=== PATIENT | female | born 1945 | race Two or more races ===

== ENCOUNTER 2018-02-01 07:37 | Outpatient (CLI) | payer OTHER ==
[~2018-02-01 07:37] MED LIST: ENALAPRIL MALEA20 MG; LASIX20 MG; LIPOFLAVONOID C1 TAB; PLAVIX75 MG; PROTONIX40 MG; PULMICORT1 MG/2 ML; SYMBICORT 16010.2 GM; ULTRACET PO; ZANTAC150 M1
== END 2018-02-01 07:52 | disposition home or self-care (01) ==
LOC: NUCLEAR 07:37
DX: R07.89 Other chest pain (principal); R94.31 Abnormal electrocardiogram [ECG] [EKG]
CPT/HCPCS: 78452; 93017; A9500; J0153

== ENCOUNTER 2020-03-27 10:10 | Emergency (ER) | payer OTHER ==
[~2020-03-27] VITALS: Ht 162.6 cm; Wt 81.6 kg
[2020-03-27] MEDS ORDERED: VERAPAMIL ER240 MG PO (10:32)
[2020-03-27] MEDS ORDERED: RELAFEN DS1000 MG PO (10:33)
== END 2020-03-27 14:38 | disposition home or self-care (01) ==
LOC: ER 10:10
DX: I87.2 Venous insufficiency (chronic) (peripheral) (principal); R60.0 Localized edema; M54.6 Pain in thoracic spine; M54.2 Cervicalgia; Z03.818 Encounter for observation for suspected exposure to other biological agents ruled out

== ENCOUNTER 2024-07-13 09:42 | Inpatient (IN) | payer OTHER ==
[~2024-07-13] VITALS: Ht 165.1 cm; Wt 72.6 kg
[~2024-07-13 09:42] MED LIST changes: +RELAFEN DS1000 MG PO; +VERAPAMIL ER240 MG PO
[2024-07-13] MEDS ORDERED: 0.9 % SODIUM CHLORIDE 1,000 ML IV SCH ×2 (10:00→18:45)
[2024-07-13] MEDS ORDERED: LEVOTHYROXINE50 MCG PO (11:03)
[2024-07-13] MEDS ORDERED: ARICEPT5 MG PO (11:04)
[2024-07-13] MEDS ORDERED: FAMOTIDINE20 MG PO (11:04)
[2024-07-13 12:03] LABS: BASO % 0.4 % (0.1-1.2); EOS # 0.01 (0.04-0.54); EOS % 0.1 % (0.7-7.0); LYMPH % 20.2 % (19.3-53.1); MEAN CORPUSCULAR HEMOGLOBIN 31.4 pg (25.6-32.2); MONO # 1.42 (0.24-0.82); NEUT # 11.01 (1.56-6.13); NEUT % 69.5 % (34.0-71.1); PLATELET COUNT 286 K/uL (163-369); RED BLOOD COUNT 2.39 M/uL (3.93-5.22); RED CELL DISTRIBUTION WIDTH 12.1 % (11.6-14.4)
[2024-07-13 12:13] LABS: HEMATOCRIT 23.4 % (34.1-44.9); HEMOGLOBIN 7.5 g/dL (11.2-15.7)
[2024-07-13 12:37] LABS: CALCIUM 8.7 mg/dL (8.5-10.1); CREATININE SERUM 1.15 mg/dL (0.55-1.02); GFR 45.29; POTASSIUM 3.33 mEq/L (3.5-5.1)
[2024-07-13] MEDS ORDERED: BARIUM SULFATE 450 ML ORAL.SUSP PO ONE (15:37)
[2024-07-13 15:55] LABS: BASO % 0.4 % (0.1-1.2); EOS # 0.01 (0.04-0.54); EOS % 0.1 % (0.7-7.0); LYMPH # 3.87 (1.18-3.74); LYMPH % 24.3 % (19.3-53.1); MEAN CORPUSCULAR HEMOGLOBIN 31.2 pg (25.6-32.2); MONO # 1.59 (0.24-0.82); NEUT # 10.28 (1.56-6.13); NEUT % 64.6 % (34.0-71.1); PLATELET COUNT 278 K/uL (163-369); RED BLOOD COUNT 2.31 M/uL (3.93-5.22)
[2024-07-13 15:56] LABS: HEMATOCRIT 22.5 % (34.1-44.9)
[2024-07-13 16:01] LABS: HEMOGLOBIN 7.2 g/dL (11.2-15.7)
[2024-07-13] MEDS ORDERED: METRONIDAZOLE/SODIUM CHLORIDE 100 ML IV SCH (18:43)
[2024-07-13] MEDS ORDERED: CEFTRIAXONE SODIUM 2,000 MG in 0.9 % SODIUM CHLORIDE 100 ML IV SCH (18:43)
[2024-07-13] MEDS ORDERED: PANTOPRAZOLE SODIUM 80 MG in 0.9 % SODIUM CHLORIDE 100 ML IV SCH (18:45)
[2024-07-13] MEDS ORDERED: FUROsemide 20 MG/2 ML VIAL IV SCH (18:45)
[2024-07-13] MEDS ORDERED: PANTOPRAZOLE SODIUM 40 MG/VIAL VIAL IV ONE (18:45)
[2024-07-13] MEDS ORDERED: ONDANSETRON HCL 4 MG in 0.9 % SODIUM CHLORIDE 50 ML IV PRN (19:00)
[2024-07-13] MEDS ORDERED: CEFTRIAXONE SODIUM 2,000 MG VIAL ONE (19:52)
[2024-07-13] MEDS ORDERED: METRONIDAZOLE/SODIUM CHLORIDE 500 MG/100 ML PIGGYBACK IV ONE (19:52)
[2024-07-13 21:21] LABS: PH,URINE 5.5 (5.0-8.0); URINE APPEARANCE Clear; URINE BILIRRUBIN Negative (NEGATIVE); URINE BLOOD Negative; URINE COLOR Yellow; URINE GLUCOSE Negative (NEGATIVE); URINE KETONE Negative (NEGATIVE); URINE LEUKOCYTE Small; URINE NITRATE Negative; URINE PROTEIN Negative (NEGATIVE)
[2024-07-13 21:25] LABS: URINE EPITHELIAL CELLS 3.4 uL (0.0-38.8); URINE RBC 3.5 uL (0.0-20.8); URINE WBC 25.6 uL (0.0-23.2)
[2024-07-13 21:32] LABS: INR 1.02; PROTHROMBIN TIME 11.1 SECONDS (9.0-11.5)
[2024-07-13 21:33] LABS: MAGNESIUM 1.7 mg/dL (1.8-2.4); PHOSPHOROUS 3.1 mg/dL (2.5-4.9)
[2024-07-13 21:39] LABS: C-REACTIVE PROTEIN 3.65 MG/DL (0.00-0.29)
[2024-07-13 21:45] LABS: PARTIAL THROMBOPLASTIN TIME < 20.0 SECONDS (22.0-34.0)
[2024-07-13 22:06] LABS: URINE BACTERIA > 9821.5 uL (0.0-1933); URINE CAST 1.17 uL (0.0-1.40)
[2024-07-14 00:14] VITALS: BP 114/56; O2SAT 97
[2024-07-14] MEDS ORDERED: LEVOTHYROXINE SODIUM 50 MCG TABLET PO SCH (06:00)
[2024-07-14 06:14] VITALS: BP 122/78; O2SAT 95
[2024-07-14] MEDS ORDERED: MAGNESIUM SULFATE IN WATER 50 ML IV NR (07:30)
[2024-07-14 08:00] VITALS: BP 144/66; O2SAT 95
[2024-07-14] MEDS ORDERED: VERAPAMIL HCL 240 MG TABLET.SA PO SCH (09:00)
[2024-07-14 16:00] VITALS: BP 130/76; O2SAT 97
[2024-07-15 00:30] VITALS: BP 130/71; O2SAT 78
[2024-07-15] MEDS ORDERED: LEVALBUTEROL HCL 0.63 MG/3 ML SOLUTION IH STA (00:38)
[2024-07-15] MEDS ORDERED: LEVALBUTEROL HCL 0.63 MG/3 ML SOLUTION IH SCH (01:00)
[2024-07-15 01:30] VITALS: O2SAT 97
[2024-07-15 08:00] VITALS: BP 129/19; O2SAT 95
[2024-07-15 15:56] VITALS: BP 113/70; O2SAT 96
[2024-07-15 23:55] VITALS: BP 128/68; BP 129/68; O2SAT 100
[2024-07-16 02:02] LABS: BASO % 0.3 % (0.1-1.2); EOS # 0.02 (0.04-0.54); EOS % 0.2 % (0.7-7.0); HEMATOCRIT 29.6 % (34.1-44.9); LYMPH # 1.22 (1.18-3.74); LYMPH % 11.3 % (19.3-53.1); MEAN CORPUSCULAR HEMOGLOBIN 30.2 pg (25.6-32.2); MONO # 2.07 (0.24-0.82); NEUT # 7.33 (1.56-6.13); NEUT % 67.5 % (34.0-71.1); PLATELET COUNT 295 K/uL (163-369); RED BLOOD COUNT 3.24 M/uL (3.93-5.22)
[2024-07-16 02:11] LABS: MONO % 19.1 % (4.7-12.5)
[2024-07-16 02:12] LABS: HEMOGLOBIN 9.8 g/dL (11.2-15.7); RED CELL DISTRIBUTION WIDTH 16.4 % (11.6-14.4)
[2024-07-16 02:43] LABS: ALBUMIN 2.3 gm/dL (3.4-5.0); CALCIUM 7.4 mg/dL (8.5-10.1); CREATININE SERUM 0.74 mg/dL (0.55-1.02); GFR 75.32; MAGNESIUM 1.5 mg/dL (1.8-2.4)
[2024-07-16 02:54] LABS: PHOSPHOROUS 0.8 mg/dL (2.5-4.9)
[2024-07-16 02:55] LABS: POTASSIUM 2.74 mEq/L (3.5-5.1)
[2024-07-16] MEDS ORDERED: POTASSIUM CHLORIDE IN WATER 40 MEQ/100 ML PIGGYBAG IV SCH (06:15)
[2024-07-16] MEDS ORDERED: POTASSIUM PHOS,M-BASIC-D-BASIC 3 MM/ML VIAL IV NR (11:00)
[2024-07-16 17:52] VITALS: BP 121/75; O2SAT 98
[2024-07-17 01:27] VITALS: BP 144/79; O2SAT 97
[2024-07-17 08:10] VITALS: BP 115/65; O2SAT 97
[2024-07-17 10:43] LABS: MAGNESIUM 1.5 mg/dL (1.8-2.4)
[2024-07-17 10:51] LABS: ALBUMIN 1.8 gm/dL (3.4-5.0); CALCIUM 7.7 mg/dL (8.5-10.1); CREATININE SERUM 0.62 mg/dL (0.55-1.02); GFR 92.38; POTASSIUM 3.92 mEq/L (3.5-5.1)
[2024-07-17 11:07] LABS: PHOSPHOROUS 1.1 mg/dL (2.5-4.9)
[2024-07-17 11:09] LABS: PHOSPHOROUS 1.1 mg/dL (2.5-4.9)
[2024-07-17 12:58] LABS: BASO % 0.2 % (0.1-1.2); EOS # 0.06 (0.04-0.54); EOS % 0.4 % (0.7-7.0); HEMATOCRIT 30.8 % (34.1-44.9); HEMOGLOBIN 9.9 g/dL (11.2-15.7); LYMPH % 13.4 % (19.3-53.1); MONO # 3.41 (0.24-0.82); NEUT # 10.32 (1.56-6.13); PLATELET COUNT 377 K/uL (163-369); RED CELL DISTRIBUTION WIDTH 16.2 % (11.6-14.4)
[2024-07-17] MEDS ORDERED: POTASSIUM PHOS,M-BASIC-D-BASIC 3 MM/ML VIAL IV ONE (13:00)
[2024-07-17 13:03] LABS: MONO % 20.8 % (4.7-12.5)
[2024-07-17 15:52] VITALS: BP 98/74; O2SAT 98
[2024-07-18 01:14] VITALS: BP 134/77; O2SAT 95
[2024-07-18 07:55] LABS: PHOSPHOROUS 1.4 mg/dL (2.5-4.9)
[2024-07-18 08:12] VITALS: BP 121/73; O2SAT 95
[2024-07-18 09:01] LABS: HEMATOCRIT 24.4 % (34.1-44.9); MEAN CORPUSCULAR HEMOGLOBIN 29.7 pg (25.6-32.2); RED BLOOD COUNT 2.59 M/uL (3.93-5.22)
[2024-07-18 09:02] LABS: BASO % 0.3 % (0.1-1.2); EOS % 0.8 % (0.7-7.0); LYMPH # 1.73 (1.18-3.74); LYMPH % 14.6 % (19.3-53.1); NEUT # 7.14 (1.56-6.13); NEUT % 60.4 % (34.0-71.1); PLATELET COUNT 375 K/uL (163-369); RED CELL DISTRIBUTION WIDTH 15.9 % (11.6-14.4)
[2024-07-18 09:04] LABS: HEMOGLOBIN 7.7 g/dL (11.2-15.7)
[2024-07-18] MEDS ORDERED: POTASSIUM PHOS,M-BASIC-D-BASIC 15 MM in 0.9 % SODIUM CHLORIDE 250 ML IV ONE (11:00)
[2024-07-18] MEDS ORDERED: ACETAMINOPHEN 500 MG GEL..CAP PO PRN (13:00)
[2024-07-18] MEDS ORDERED: DIATRIZOATE MEGLUMINE, SODIUM 30 ML BOTTLE PO NR (13:15)
[2024-07-18 16:37] VITALS: BP 117/70; O2SAT 100
[2024-07-18] MEDS ORDERED: PANTOPRAZOLE SODIUM 40 MG TABLET.DR PO SCH (17:00)
[2024-07-19 01:00] VITALS: BP 137/66; O2SAT 99
[2024-07-19 08:16] VITALS: BP 146/80; O2SAT 98
[2024-07-19 11:27] LABS: HEMATOCRIT 31.9 % (34.1-44.9); RED BLOOD COUNT 3.44 M/uL (3.93-5.22)
[2024-07-19] MEDS ORDERED: MIDAZOLAM HCL 2 MG/2 ML VIAL IV STA (11:49)
[2024-07-19 16:50] VITALS: BP 161/84; O2SAT 95
[2024-07-19] MEDS ORDERED: ANIDULAFUNGIN 100 MG VIAL IV NR (19:30)
[2024-07-20 00:27] VITALS: BP 152/76; BP 163/88; O2SAT 95; O2SAT 96
[2024-07-20 08:00] VITALS: BP 154/77; O2SAT 92
[2024-07-20 13:43] LABS: BASO % 0.4 % (0.1-1.2); EOS # 0.06 (0.04-0.54); EOS % 0.4 % (0.7-7.0); HEMATOCRIT 36.5 % (34.1-44.9); LYMPH # 1.23 (1.18-3.74); LYMPH % 7.9 % (19.3-53.1); MEAN CORPUSCULAR HEMOGLOBIN 29.8 pg (25.6-32.2); MONO # 1.43 (0.24-0.82); MONO % 9.2 % (4.7-12.5); NEUT # 12.51 (1.56-6.13); NEUT % 80.8 % (34.0-71.1); PLATELET COUNT 425 K/uL (163-369); RED BLOOD COUNT 4.03 M/uL (3.93-5.22); RED CELL DISTRIBUTION WIDTH 15.3 % (11.6-14.4)
[2024-07-20 14:35] LABS: BILIRUBIN TOTAL 0.66 mg/dL (0.3-1.2); CALCIUM 8.3 mg/dL (8.5-10.1); CREATININE SERUM 0.53 mg/dL (0.55-1.02); GFR 110.71; GLOBULINA 3.3 G/DL (2.4-3.5); TOTAL PROTEIN 5.3 gm/dL (6.4-8.2)
[2024-07-20 14:51] LABS: POTASSIUM 2.86 mEq/L (3.5-5.1)
[2024-07-20] MEDS ORDERED: POTASSIUM CHLORIDE IN WATER 40 MEQ/100 ML PIGGYBAG IV STA (15:01)
[2024-07-20 16:13] VITALS: BP 154/87; O2SAT 96
[2024-07-20] MEDS ORDERED: ANIDULAFUNGIN 100 MG VIAL IV SCH (17:00)
[2024-07-21] MEDS ORDERED: POTASSIUM CHLORIDE IN WATER 40 MEQ/100 ML PIGGYBAG IV NR
[2024-07-21 00:49] VITALS: BP 165/94; O2SAT 98
[2024-07-21 07:27] LABS: BASO % 0.6 % (0.1-1.2); EOS # 0.09 (0.04-0.54); EOS % 0.6 % (0.7-7.0); HEMATOCRIT 42.3 % (34.1-44.9); HEMOGLOBIN 13.7 g/dL (11.2-15.7); LYMPH # 1.54 (1.18-3.74); LYMPH % 10.6 % (19.3-53.1); MEAN CORPUSCULAR HEMOGLOBIN 29.8 pg (25.6-32.2); MONO # 1.34 (0.24-0.82); MONO % 9.2 % (4.7-12.5); NEUT # 11.15 (1.56-6.13); NEUT % 76.9 % (34.0-71.1); PLATELET COUNT 441 K/uL (163-369); RED CELL DISTRIBUTION WIDTH 15.2 % (11.6-14.4)
[2024-07-21 07:56] LABS: ALBUMIN 2.1 gm/dL (3.4-5.0); BILIRUBIN TOTAL 0.95 mg/dL (0.3-1.2); CALCIUM 8.6 mg/dL (8.5-10.1); CREATININE SERUM 0.5 mg/dL (0.55-1.02); GFR 118.41; GLOBULINA 3.6 G/DL (2.4-3.5); POTASSIUM 4.03 mEq/L (3.5-5.1); TOTAL PROTEIN 5.7 gm/dL (6.4-8.2)
[2024-07-21 08:56] VITALS: BP 155/84; O2SAT 94
[2024-07-21 16:16] VITALS: BP 136/83; O2SAT 95
[2024-07-22 08:00] VITALS: BP 137/81; O2SAT 95
[2024-07-22 15:36] VITALS: BP 144/81; O2SAT 94
[2024-07-23 08:00] VITALS: BP 162/90; O2SAT 95
[2024-07-23 08:22] LABS: BILIRUBIN TOTAL 0.49 mg/dL (0.3-1.2); CREATININE SERUM 0.44 mg/dL (0.55-1.02); GFR 137.24; GLOBULINA 3.3 G/DL (2.4-3.5); PHOSPHOROUS 2.1 mg/dL (2.5-4.9); POTASSIUM 3.82 mEq/L (3.5-5.1); TOTAL PROTEIN 5.3 gm/dL (6.4-8.2)
[2024-07-23 09:03] LABS: C-REACTIVE PROTEIN 4.07 MG/DL (0.00-0.29)
[2024-07-23 09:04] LABS: MAGNESIUM 1.3 mg/dL (1.8-2.4)
[2024-07-23 10:36] LABS: BASO % 0.7 % (0.1-1.2); EOS # 0.08 (0.04-0.54); EOS % 0.8 % (0.7-7.0); HEMATOCRIT 38.6 % (34.1-44.9); HEMOGLOBIN 12.3 g/dL (11.2-15.7); LYMPH % 13.7 % (19.3-53.1); MEAN CORPUSCULAR HEMOGLOBIN 29.1 pg (25.6-32.2); MONO # 1.38 (0.24-0.82); MONO % 13.5 % (4.7-12.5); NEUT # 6.99 (1.56-6.13); NEUT % 68.6 % (34.0-71.1); PLATELET COUNT 386 K/uL (163-369); RED BLOOD COUNT 4.22 M/uL (3.93-5.22); RED CELL DISTRIBUTION WIDTH 15.4 % (11.6-14.4)
[2024-07-23 16:03] VITALS: BP 140/85; O2SAT 100
[2024-07-24 00:25] VITALS: BP 163/93; O2SAT 96
[2024-07-24 07:46] VITALS: BP 155/87; O2SAT 100
[2024-07-24 15:38] VITALS: BP 142/84; O2SAT 98
[2024-07-25 01:12] VITALS: BP 13/90; O2SAT 97
[2024-07-25 07:42] VITALS: BP 158/89; O2SAT 97
[2024-07-25 16:00] VITALS: BP 143/80; O2SAT 99
[2024-07-26 01:25] VITALS: BP 147/84; O2SAT 100
[2024-07-26 08:19] VITALS: BP 165/96; O2SAT 96
[2024-07-26 16:00] VITALS: BP 147/83; O2SAT 95
[2024-07-28] MEDS ORDERED: LEVOTHYROXINE25 MCG (18:15)
== END 2024-07-26 17:45 | disposition home or self-care (01) | DRG 812 ==
LOC: ER 09:42 → SURG 19:28 → SEC-K 19:28 → SURG 07-14 02:27
PROVIDERS: Emergency Medicine; General Practice; Internal Medicine; Internal Medicine Infectious Disease; Internal Medicine Nephrology; ADMIT Internal Medicine; ATTEND Internal Medicine
PROC: BW28ZZZ Computerized Tomography (CT Scan) of Head (ICD-10-PCS; 2024-07-13)
PROC: BW21ZZZ Computerized Tomography (CT Scan) of Abdomen and Pelvis (ICD-10-PCS; 2024-07-13)
PROC: 30233N1 Transfusion of Nonautologous Red Blood Cells into Peripheral Vein, Percutaneous Approach (ICD-10-PCS; 2024-07-14)
PROC: BW21YZZ Computerized Tomography (CT Scan) of Abdomen and Pelvis using Other Contrast (ICD-10-PCS; 2024-07-18)
PROC: 02HV33Z Insertion of Infusion Device into Superior Vena Cava, Percutaneous Approach (ICD-10-PCS; 2024-07-18)
PROC: 0DB58ZX Excision of Esophagus, Via Natural or Artificial Opening Endoscopic, Diagnostic (ICD-10-PCS; principal; 2024-07-19)
PROC: B54DZZZ Ultrasonography of Bilateral Lower Extremity Veins (ICD-10-PCS; 2024-07-25)
DX: D64.9 Anemia, unspecified (principal); B37.81 Candidal esophagitis; N17.9 Acute kidney failure, unspecified; N39.0 Urinary tract infection, site not specified; K57.30 Diverticulosis of large intestine without perforation or abscess without bleeding; E78.5 Hyperlipidemia, unspecified; E87.6 Hypokalemia; E03.9 Hypothyroidism, unspecified; I87.2 Venous insufficiency (chronic) (peripheral); I10 Essential (primary) hypertension; K52.89 Other specified noninfective gastroenteritis and colitis

== ENCOUNTER → 2024-07-28 | Emergency (ER) | payer OTHER ==
[~2024-07-28] VITALS: Ht 165.1 cm; Wt 77.1 kg
[~2024-07-28] MED LIST changes: +0.9 % SODIUM CHLORIDE 1,000 ML IV ONE; +ACETAMINOPHEN 500 MG GEL..CAP PO ONE; +ARICEPT5 MG PO; +FAMOTIDINE/PF 20 MG/2 ML VIAL ONE; +FAMOTIDINE20 MG PO; +FAMOtidine 10 MG/ML (4ML VIAL) IV ONE; +KETOROLAC TROMETHAMINE 30 MG VIAL IV ONE; +KETOROLAC TROMETHAMINE 30 MG VIAL ONE; +LEVOTHYROXINE25 MCG; +LEVOTHYROXINE50 MCG PO; +PIPERACILLIN/TAZOBACTAM SODIUM 3.375 GM VIAL IV ONE
[2024-07-28 21:27] LABS: BASO % 0.2 % (0.1-1.2); EOS # 0.01 (0.04-0.54); EOS % 0.1 % (0.7-7.0); HEMOGLOBIN 14.1 g/dL (11.2-15.7); LYMPH # 1.16 (1.18-3.74); LYMPH % 7.9 % (19.3-53.1); MEAN CORPUSCULAR HEMOGLOBIN 29.9 pg (25.6-32.2); MONO # 1.28 (0.24-0.82); MONO % 8.7 % (4.7-12.5); NEUT # 12.07 (1.56-6.13); NEUT % 82.5 % (34.0-71.1); PLATELET COUNT 347 K/uL (163-369); RED BLOOD COUNT 4.72 M/uL (3.93-5.22); RED CELL DISTRIBUTION WIDTH 15.1 % (11.6-14.4)
[2024-07-28 21:53] LABS: ALBUMIN 2.3 gm/dL (3.4-5.0); BILIRUBIN TOTAL 0.64 mg/dL (0.3-1.2); CALCIUM 9.9 mg/dL (8.5-10.1); CREATININE SERUM 0.46 mg/dL (0.55-1.02); ERYTHROCYTE SEDIMENTATION RATE 45 mm/hr (0-30); GFR 130.37; POTASSIUM 3.5 mEq/L (3.5-5.1); TOTAL PROTEIN 7.3 gm/dL (6.4-8.2)
[2024-07-28 21:55] LABS: INR 1.1; PROTHROMBIN TIME 11.9 SECONDS (9.0-11.5)
[2024-07-28 21:58] LABS: D DIMER 2.25 MG/L; PARTIAL THROMBOPLASTIN TIME 26.7 SECONDS (22.0-34.0)
== END | disposition home or self-care (01) ==
LOC: ER 17:18
PROVIDERS: General Practice
DX: L03.115 Cellulitis of right lower limb (principal); M17.11 Unilateral primary osteoarthritis, right knee; M25.561 Pain in right knee; M79.606 Pain in leg, unspecified; I10 Essential (primary) hypertension; E03.8 Other specified hypothyroidism
CPT/HCPCS: 36415; 73560; 93926; 93971; 96365; 99284; J1885; J2543; J3490; J7030

== ENCOUNTER 2024-08-03 17:03 | Inpatient (IN) | payer OTHER ==
[~2024-08-03] VITALS: Ht 162.6 cm; Wt 169.6 kg
[~2024-08-03 17:03] MED LIST changes: -0.9 % SODIUM CHLORIDE 1,000 ML IV ONE; -ACETAMINOPHEN 500 MG GEL..CAP PO ONE; -FAMOTIDINE/PF 20 MG/2 ML VIAL ONE; -FAMOtidine 10 MG/ML (4ML VIAL) IV ONE; -KETOROLAC TROMETHAMINE 30 MG VIAL IV ONE; -KETOROLAC TROMETHAMINE 30 MG VIAL ONE; -PIPERACILLIN/TAZOBACTAM SODIUM 3.375 GM VIAL IV ONE
[2024-08-03] MEDS ORDERED: 0.9 % SODIUM CHLORIDE 1,000 ML IV SCH (17:30)
[2024-08-03] MEDS ORDERED: ACETAMINOPHEN 500 MG GEL..CAP PO ONE ×2 (17:30→17:32)
[2024-08-03 18:02] LABS: BASO % 0.9 % (0.1-1.2); EOS # 0.04 (0.04-0.54); EOS % 0.5 % (0.7-7.0); HEMATOCRIT 38.6 % (34.1-44.9); HEMOGLOBIN 12.4 g/dL (11.2-15.7); LYMPH # 1.75 (1.18-3.74); LYMPH % 21.3 % (19.3-53.1); MEAN CORPUSCULAR HEMOGLOBIN 29.7 pg (25.6-32.2); MONO # 1.11 (0.24-0.82); NEUT # 5.19 (1.56-6.13); NEUT % 63.3 % (34.0-71.1); PLATELET COUNT 437 K/uL (163-369); RED BLOOD COUNT 4.17 M/uL (3.93-5.22); RED CELL DISTRIBUTION WIDTH 15.6 % (11.6-14.4)
[2024-08-03 18:05] LABS: MONO % 13.5 % (4.7-12.5)
[2024-08-03 18:07] LABS: ERYTHROCYTE SEDIMENTATION RATE 87 mm/hr (0-30)
[2024-08-03 18:32] LABS: ALBUMIN 2.1 gm/dL (3.4-5.0); BILIRUBIN TOTAL 0.37 mg/dL (0.3-1.2); CALCIUM 9.3 mg/dL (8.5-10.1); CREATININE SERUM 0.49 mg/dL (0.55-1.02); GFR 121.21; GLOBULINA 4.6 G/DL (2.4-3.5); TOTAL PROTEIN 6.7 gm/dL (6.4-8.2)
[2024-08-03 18:35] LABS: C-REACTIVE PROTEIN 3.78 MG/DL (0.00-0.29)
[2024-08-03 18:44] LABS: POTASSIUM 2.96 mEq/L (3.5-5.1)
[2024-08-03] MEDS ORDERED: POTASSIUM CHLORIDE 10 MEQ CAPSULE PO ONE (19:00)
[2024-08-03 19:01] LABS: INFLUENZA A AG NEGATIVE (NEGATIVE); INFLUENZA B AG NEGATIVE (NEGATIVE)
[2024-08-03 19:02] LABS: COVID-19 AG NEGATIVE (NEGATIVE)
[2024-08-03 19:32] LABS: URINE APPEARANCE Cloudy; URINE BILIRRUBIN Negative (NEGATIVE); URINE BLOOD Negative; URINE COLOR Yellow; URINE GLUCOSE Negative (NEGATIVE); URINE KETONE Negative (NEGATIVE); URINE LEUKOCYTE Trace; URINE NITRATE Negative; URINE PROTEIN Trace (NEGATIVE)
[2024-08-03 19:36] LABS: URINE EPITHELIAL CELLS 13.9 uL (0.0-38.8); URINE RBC 4.5 uL (0.0-20.8); URINE WBC 6.1 uL (0.0-23.2)
[2024-08-03 19:41] LABS: URINE CAST 0.14 uL (0.0-1.40)
[2024-08-03 20:12] LABS: TYPE CELLS SQUAMOUS; URINE CRYSTALS MANY /HPF
[2024-08-03 20:14] LABS: URINE YEAST NEGATIVE /hpf
[2024-08-03] MEDS ORDERED: VANCOMYCIN HCL 1,000 MG VIAL IV SCH (20:57)
[2024-08-03] MEDS ORDERED: CEFTRIAXONE SODIUM 2,000 MG in 0.9 % SODIUM CHLORIDE 100 ML IV SCH (20:57)
[2024-08-03] MEDS ORDERED: ACETAMINOPHEN 500 MG GEL..CAP PO PRN (21:00)
[2024-08-03] MEDS ORDERED: ONDANSETRON HCL 4 MG in 0.9 % SODIUM CHLORIDE 50 ML IV PRN (21:00)
[2024-08-03] MEDS ORDERED: POTASSIUM CHLORIDE IN WATER 100 ML IV SCH (21:09)
[2024-08-03] MEDS ORDERED: MORPHINE SULFATE 2 MG/ML CARTRIDGE IV ONE (21:15)
[2024-08-04] MEDS ORDERED: POTASSIUM CHLORIDE 20MEQ/100ML H2O PB IV ONE (00:21)
[2024-08-04] MEDS ORDERED: VANCOMYCIN HCL 1,000 MG VIAL ONE (00:21)
[2024-08-04] MEDS ORDERED: CEFTRIAXONE SODIUM 2,000 MG VIAL ONE (00:21)
[2024-08-04 01:34] LABS: INR 1.12; PROTHROMBIN TIME 12.1 SECONDS (9.0-11.5)
[2024-08-04 01:36] LABS: PHOSPHOROUS 2.7 mg/dL (2.5-4.9)
[2024-08-04 01:37] LABS: D DIMER 4.13 MG/L; PARTIAL THROMBOPLASTIN TIME 25.6 SECONDS (22.0-34.0)
[2024-08-04 01:48] LABS: MAGNESIUM 1.2 mg/dL (1.8-2.4)
[2024-08-04] MEDS ORDERED: MAGNESIUM SULFATE IN WATER 50 ML IV ONE (02:00)
[2024-08-04] MEDS ORDERED: LEVOTHYROXINE SODIUM 25 MCG TABLET PO SCH (06:00)
[2024-08-04 08:12] LABS: C-REACTIVE PROTEIN 3.36 MG/DL (0.00-0.29)
[2024-08-04] MEDS ORDERED: LACTOBACILLUS ACIDOPHILUS 1 CAP CAP PO SCH (09:00)
[2024-08-04] MEDS ORDERED: FAMOTIDINE/PF 20 MG in 0.9 % SODIUM CHLORIDE 8 ML IV PUSH SCH (09:00)
[2024-08-04] MEDS ORDERED: VERAPAMIL HCL 240 MG TABLET.SA PO SCH (09:00)
[2024-08-04 09:18] VITALS: BP 138/76; O2SAT 94
[2024-08-04] MEDS ORDERED: ONDANSETRON HCL 2 MG/ML VIAL ONE (10:07)
[2024-08-04] MEDS ORDERED: ANIDULAFUNGIN 100 MG VIAL IV NR (16:30)
[2024-08-04] MEDS ORDERED: MEROPENEM 500 MG/VIAL VIAL IV SCH (17:00)
[2024-08-04] MEDS ORDERED: DONEPEZIL HCL 10 MG TABLET PO SCH (17:00)
[2024-08-04 17:41] VITALS: BP 112/68
[2024-08-05 02:22] VITALS: BP 151/83; O2SAT 98
[2024-08-05 07:46] LABS: BASO % 0.8 % (0.1-1.2); EOS # 0.17 (0.04-0.54); EOS % 2.3 % (0.7-7.0); HEMATOCRIT 34.4 % (34.1-44.9); HEMOGLOBIN 10.9 g/dL (11.2-15.7); LYMPH # 1.44 (1.18-3.74); LYMPH % 19.8 % (19.3-53.1); MEAN CORPUSCULAR HEMOGLOBIN 30.4 pg (25.6-32.2); MONO # 0.82 (0.24-0.82); MONO % 11.3 % (4.7-12.5); NEUT # 4.74 (1.56-6.13); NEUT % 65.2 % (34.0-71.1); PLATELET COUNT 346 K/uL (163-369); RED BLOOD COUNT 3.59 M/uL (3.93-5.22); RED CELL DISTRIBUTION WIDTH 15.7 % (11.6-14.4)
[2024-08-05 08:06] VITALS: BP 149/85; O2SAT 92
[2024-08-05 08:14] LABS: ALBUMIN 1.9 gm/dL (3.4-5.0); BILIRUBIN TOTAL 0.25 mg/dL (0.3-1.2); CALCIUM 8.4 mg/dL (8.5-10.1); CREATININE SERUM 0.32 mg/dL (0.55-1.02); GFR 198.18; GLOBULINA 3.5 G/DL (2.4-3.5); MAGNESIUM 1.5 mg/dL (1.8-2.4); PHOSPHOROUS 2.1 mg/dL (2.5-4.9); POTASSIUM 3.57 mEq/L (3.5-5.1); TOTAL PROTEIN 5.4 gm/dL (6.4-8.2)
[2024-08-05 08:16] LABS: C-REACTIVE PROTEIN 3.4 MG/DL (0.00-0.29)
[2024-08-05] MEDS ORDERED: MAGNESIUM SULFATE IN WATER 50 ML IV NR (12:00)
[2024-08-05 16:00] VITALS: BP 160/87; O2SAT 96
[2024-08-05] MEDS ORDERED: ANIDULAFUNGIN 100 MG VIAL IV SCH (17:00)
[2024-08-06 02:06] VITALS: BP 151/88; O2SAT 94
[2024-08-06 07:44] LABS: URINE APPEARANCE Clear; URINE BILIRRUBIN Negative (NEGATIVE); URINE BLOOD Moderate; URINE COLOR Dark Yellow; URINE GLUCOSE Negative (NEGATIVE); URINE KETONE Trace (NEGATIVE); URINE LEUKOCYTE Small; URINE NITRATE Negative; URINE PROTEIN 30 (NEGATIVE)
[2024-08-06 07:48] LABS: URINE EPITHELIAL CELLS 31.3 uL (0.0-38.8); URINE RBC 437.3 uL (0.0-20.8); URINE WBC 133.7 uL (0.0-23.2)
[2024-08-06 08:45] LABS: URINE CAST 1.32 uL (0.0-1.40)
[2024-08-06 08:46] LABS: TYPE CELLS SQUAMOUS; URINE MUCUS SCANT
[2024-08-06 10:05] VITALS: BP 150/89; O2SAT 94
[2024-08-06 16:00] VITALS: BP 132/77; O2SAT 95
[2024-08-07 02:02] VITALS: BP 157/90; O2SAT 88
[2024-08-07 08:38] VITALS: BP 155/88; O2SAT 97
[2024-08-07 16:45] VITALS: BP 119/75
[2024-08-08 01:33] VITALS: BP 141/78; O2SAT 94
[2024-08-08 08:59] VITALS: BP 164/94; O2SAT 96
[2024-08-08] MEDS ORDERED: VANCOMYCIN HCL 5 MG/ML REDILUIDO IV SCH (09:00)
[2024-08-08] MEDS ORDERED: FAMOtidine 20 MG TABLET PO SCH (09:00)
[2024-08-08] MEDS ORDERED: METOCLOPRAMIDE HCL 5 MG/ML VIAL IV SCH (13:00)
[2024-08-08 16:54] VITALS: BP 130/83; O2SAT 98
[2024-08-09 02:04] VITALS: BP 154/90; O2SAT 91
[2024-08-09 09:17] VITALS: BP 149/86; O2SAT 95
[2024-08-09 17:17] VITALS: BP 106/64; O2SAT 98
[2024-08-10 01:59] VITALS: BP 153/86; O2SAT 91
[2024-08-10 11:03] VITALS: BP 149/79; O2SAT 96
[2024-08-10 16:49] VITALS: BP 156/86; O2SAT 95
[2024-08-11 01:21] VITALS: BP 151/85; O2SAT 97
[2024-08-11 05:24] LABS: BASO % 0.9 % (0.1-1.2); EOS # 0.04 (0.04-0.54); EOS % 0.9 % (0.7-7.0); HEMATOCRIT 39.7 % (34.1-44.9); LYMPH # 1.36 (1.18-3.74); LYMPH % 29.3 % (19.3-53.1); MEAN CORPUSCULAR HEMOGLOBIN 29.8 pg (25.6-32.2); MONO # 0.57 (0.24-0.82); NEUT # 2.61 (1.56-6.13); NEUT % 56.2 % (34.0-71.1); PLATELET COUNT 405 K/uL (163-369); RED BLOOD COUNT 4.39 M/uL (3.93-5.22)
[2024-08-11 05:31] LABS: MONO % 12.3 % (4.7-12.5)
[2024-08-11 05:32] LABS: HEMOGLOBIN 13.1 g/dL (11.2-15.7)
[2024-08-11 05:50] LABS: CREATININE SERUM 0.41 mg/dL (0.55-1.02); GFR 148.89
[2024-08-11 07:17] LABS: POTASSIUM 2.36 mEq/L (3.5-5.1)
[2024-08-11 08:58] VITALS: BP 170/90; O2SAT 96
[2024-08-11 12:43] VITALS: BP 146/88
[2024-08-11 17:24] VITALS: BP 125/82; O2SAT 93
[2024-08-12] VITALS: BP 155/85; O2SAT 99
[2024-08-12 08:58] VITALS: BP 177/89
== END 2024-08-12 12:14 | disposition home or self-care (01) | DRG 641 ==
LOC: ER 17:03 → MEDI 21:24
PROVIDERS: General Practice; Internal Medicine; Internal Medicine Infectious Disease; ADMIT Internal Medicine; ATTEND Internal Medicine
PROC: BQ2RZZZ Computerized Tomography (CT Scan) of Right Lower Extremity (ICD-10-PCS; principal; 2024-08-04)
PROC: 8E0ZXY6 Isolation (ICD-10-PCS; 2024-08-05)
DX: E87.6 Hypokalemia (principal); T82.594A Other mechanical complication of infusion catheter, initial encounter; N39.0 Urinary tract infection, site not specified; Q79.60 Ehlers-Danlos syndrome, unspecified; E86.0 Dehydration; M79.661 Pain in right lower leg; M05.10 Rheumatoid lung disease with rheumatoid arthritis of unspecified site; I10 Essential (primary) hypertension; E78.5 Hyperlipidemia, unspecified; E03.9 Hypothyroidism, unspecified; Y82.8 Other medical devices associated with adverse incidents; Z74.01 Bed confinement status; B96.20 Unspecified Escherichia coli [E. coli] as the cause of diseases classified elsewhere